=== PATIENT | male | born 1990 | race Caucasian/White ===

== ENCOUNTER 2018-05-26 19:06 | Emergency (ER) | payer SELFPAY ==
[~2018-05-26] VITALS: Ht 165.1 cm; Wt 63.6 kg
[2018-05-26] MEDS ORDERED: SODIUM CHLORIDE 0.9% 1,000 ML IV ONE (19:34)
[2018-05-26] MEDS ORDERED: FOLIC ACID 1 MG, THIAMINE HCL 100 MG, MVI, ADULT NO.1 10 ML in DEXTROSE 5% WATER 1,000 ML IV ONE ×4 (19:45)
[2018-05-26 20:31] LABS: BASOPHILS % 3.4 % (0.0-2.0); EOSINOPHILS % 0.4 % (0.0-5.0); HEMATOCRIT. 29.2 % (42.0-52.0); LYMPHOCYTES % 49.9 % (20.0-50.0); MEAN CORPUSCULAR HEMOGLOBIN 19.8 pg (28.0-32.0); MEAN CORPUSCULAR VOLUME 64.2 fL (80.0-94.0); MEAN PLATELET VOLUME 8.2 fl (7.4-10.4); MONOCYTES % 10.8 % (2.0-8.0); NEUTROPHILS % 35.5 % (40.0-76.0); RED BLOOD CELL COUNT 4.55 mill/uL (4.7-6.1); RED CELL DISTRIBUTION WIDTH 24.2 % (11.6-14.6)
[2018-05-26 20:34] LABS: CHLORIDE 99 mEq/L (98-107)
[2018-05-26 20:40] LABS: *COCAINE SCREEN URINE NEGATIVE (NEGATIVE); METHADONE URINE SCREEN NEGATIVE (NEGATIVE)
[2018-05-26 20:41] LABS: *AMPHETAMINES SCREEN URINE NEGATIVE (NEGATIVE); *BARBITURATES SCREEN URINE NEGATIVE (NEGATIVE); *BENZODIAZEPINES SCREEN URINE NEGATIVE (NEGATIVE); CANNABINOID URINE SCREEN NEGATIVE (NEGATIVE); OPIATES URINE SCREEN NEGATIVE (NEGATIVE); PHENCYCLIDINE URINE SCREEN NEGATIVE (NEGATIVE)
[2018-05-26 20:47] LABS: PLATELET 50 x1000/uL (130-400)
[2018-05-26 20:54] LABS: ETHANOL BLOOD 479 mg/dL
[2018-05-26 21:58] LABS: PLATELET ESTIMATE MARKEDLY DECREASED
[2018-05-27 05:46] VITALS: BP 101/64
== END 2018-05-27 06:20 | disposition home or self-care (01) ==
LOC: ER 19:06
DX: F10.129 Alcohol abuse with intoxication, unspecified (principal); Y90.8 Blood alcohol level of 240 mg/100 ml or more; D69.6 Thrombocytopenia, unspecified; D72.819 Decreased white blood cell count, unspecified; D64.9 Anemia, unspecified; R73.9 Hyperglycemia, unspecified
CPT/HCPCS: 36415; 70450; 80053; 80305; 85025; 96365; 99285; G0482; J3411; J3490; J7030; J7070; Z7610

== ENCOUNTER 2018-06-01 12:42 | Inpatient (IN) | payer SELFPAY ==
[~2018-06-01] VITALS: Ht 162.6 cm; Wt 75.7 kg
[2018-06-01] MEDS ORDERED: FAMOTIDINE 20MG/2ML VIAL IV STA (13:45)
[2018-06-01] MEDS ORDERED: SODIUM CHLORIDE 0.9% 1,000 ML IV ONE (13:45)
[2018-06-01] MEDS ORDERED: MORPHINE SULFATE 4 MG/ML CPJ (NOT FOR IM USE) IV STA (13:45)
[2018-06-01] MEDS ORDERED: ONDANSETRON HCL 4MG/2ML INJ IV STA (13:45)
[2018-06-01 15:30] LABS: HEMATOCRIT. 25.9 % (42.0-52.0); HEMOGLOBIN. 7.9 g/dL (14.0-18.0); MEAN CORPUSCULAR HEMOGLOBIN 20.1 pg (28.0-32.0); MEAN CORPUSCULAR VOLUME 65.8 fL (80.0-94.0); MEAN PLATELET VOLUME 8.4 fl (7.4-10.4); RED BLOOD CELL COUNT 3.94 mill/uL (4.7-6.1); RED CELL DISTRIBUTION WIDTH 25.1 % (11.6-14.6)
[2018-06-01 15:34] LABS: PLATELET 35 x1000/uL (130-400)
[2018-06-01 15:40] LABS: CHLORIDE 104 mEq/L (98-107)
[2018-06-01 16:02] LABS: INR 1.1; PARTIAL THROMBOPLASTIN TIME 30.1 sec (23.4-31.0); PROTHROMBIN TIME 11.5 sec (9.1-11.1)
[2018-06-01 16:10] LABS: ETHANOL BLOOD 345 mg/dL
[2018-06-01 16:11] LABS: PLATELET ESTIMATE MARKEDLY DECREASED
[2018-06-01] MEDS ORDERED: KCL 10MEQ/50ML PREMIX 50 ML IV ONE (16:15)
[2018-06-01 16:51] LABS: CLARITY URINE CLEAR (CLEAR); COLOR URINE YELLOW (YELLOW); KETONES URINE NEGATIVE (NEGATIVE); LEUKOCYTE ESTERASE URINE NEGATIVE (NEGATIVE); NITRITE URINE NEGATIVE (NEGATIVE); OCCULT BLOOD URINE NEGATIVE (NEGATIVE); PROTEIN URINE NEGATIVE (NEGATIVE); SPECIFIC GRAVITY URINE 1.002 (1.005-1.030); UROBILINOGEN URINE 0.2 E.U./dL (0.2-1.0)
[2018-06-01 17:22] LABS: *AMPHETAMINES SCREEN URINE NEGATIVE (NEGATIVE); *BARBITURATES SCREEN URINE NEGATIVE (NEGATIVE); *BENZODIAZEPINES SCREEN URINE NEGATIVE (NEGATIVE); *COCAINE SCREEN URINE NEGATIVE (NEGATIVE); METHADONE URINE SCREEN NEGATIVE (NEGATIVE); OPIATES URINE SCREEN NEGATIVE (NEGATIVE); PHENCYCLIDINE URINE SCREEN NEGATIVE (NEGATIVE)
[2018-06-01 17:23] LABS: CANNABINOID URINE SCREEN NEGATIVE (NEGATIVE)
[2018-06-01 18:58] VITALS: BP 138/91
[2018-06-01 20:00] VITALS: BP 140/94
[2018-06-01] MEDS ORDERED: ENOXAPARIN 40MG/0.4ML SYR SUBCUT SCH (20:00)
[2018-06-01] MEDS ORDERED: ONDANSETRON HCL 4MG/2ML INJ IV PRN (20:00)
[2018-06-01] MEDS ORDERED: MAGNESIUM/ALUMINUM HYDROXIDE/SIMETHICONE 30ML UDC PO PRN (20:00)
[2018-06-01] MEDS ORDERED: IPRATROPIUM/ALBUTEROL 0.5-3(2.5)MG/3ML NEB INH PRN (20:00)
[2018-06-01] MEDS ORDERED: NA PHOS,M-B/NA PHOS,DI-BA ENEMA 118ML PR PRN (20:00)
[2018-06-01] MEDS ORDERED: DIPHENHYDRAMINE 50MG/ML VIAL IV PRN (20:00)
[2018-06-01] MEDS ORDERED: HYDROCODONE/ACETAMINOPHEN 5/325MG TABLET PO PRN (20:00)
[2018-06-01] MEDS ORDERED: ACETAMINOPHEN 650MG SUPP PR PRN (20:00)
[2018-06-01] MEDS ORDERED: ACETAMINOPHEN 650MG/20.3ML UDC GT PRN (20:00)
[2018-06-01] MEDS ORDERED: CLONIDINE 0.1MG TABLET PO PRN (20:00)
[2018-06-01] MEDS ORDERED: HYDROCODONE/ACETAMINOPHEN 10/325MG TABLET PO PRN (20:00)
[2018-06-01] MEDS ORDERED: THIAMINE HCL 100MG TABLET PO NR (20:15)
[2018-06-01] MEDS ORDERED: POTASSIUM CHLORIDE 20MEQ TABLET SR PO PRN (20:15)
[2018-06-01] MEDS ORDERED: THIAMINE HCL 100MG TABLET PO ONE (20:15)
[2018-06-01] MEDS: CHLORDIAZEPOXIDE 25MG CAPSULE PO SCH (21:22)
[2018-06-01] MEDS: FAMOTIDINE 20MG TABLET PO SCH (21:22)
[2018-06-01] MEDS: FOLIC ACID 1MG TABLET PO SCH (21:22)
[2018-06-01] MEDS: SODIUM CHLORIDE 0.9% INJ 3ML FLUSH IVF SCH (21:23)
[2018-06-01] MEDS: SODIUM CHLORIDE 0.45% 1,000 ML IV SCH (21:47)
[2018-06-02] VITALS (7 sets, daily range): BP systolic 119–154; BP diastolic 75–90
[2018-06-02 05:45] LABS: CHLORIDE 101 mEq/L (98-107)
[2018-06-02] MEDS: CHLORDIAZEPOXIDE 25MG CAPSULE PO SCH ×3 (05:50→21:16)
[2018-06-02] MEDS: ACETAMINOPHEN 325MG TABLET PO PRN ×2 (05:52→12:39)
[2018-06-02] MEDS: SODIUM CHLORIDE 0.9% INJ 3ML FLUSH IVF SCH ×2 (05:53→15:07)
[2018-06-02] MEDS: MORPHINE SULFATE 4 MG/ML CPJ (NOT FOR IM USE) IV PRN ×2 (05:53→21:17)
[2018-06-02 05:54] LABS: HDL CHOLESTEROL 93 mg/dL (40-59); LDL CHOLESTEROL 83 mg/dL (5-100)
[2018-06-02 06:40] LABS: HEMATOCRIT. 25.1 % (42.0-52.0); HEMOGLOBIN. 7.8 g/dL (14.0-18.0); MEAN CORPUSCULAR HEMOGLOBIN 20.5 pg (28.0-32.0); MEAN CORPUSCULAR VOLUME 65.9 fL (80.0-94.0); MEAN PLATELET VOLUME 8.3 fl (7.4-10.4); RED BLOOD CELL COUNT 3.82 mill/uL (4.7-6.1); RED CELL DISTRIBUTION WIDTH 24.2 % (11.6-14.6)
[2018-06-02 07:14] LABS: PLATELET 33 x1000/uL (130-400)
[2018-06-02] MEDS: THIAMINE HCL 100MG TABLET PO SCH (08:51)
[2018-06-02] MEDS: FOLIC ACID 1MG TABLET PO SCH (08:51)
[2018-06-02] MEDS: SODIUM CHLORIDE 0.45% 1,000 ML IV SCH ×2 (08:54→21:22)
[2018-06-02] MEDS: FAMOTIDINE 20MG TABLET PO SCH (21:16)
[2018-06-03] VITALS: BP 120/76
[2018-06-03] MEDS: ACETAMINOPHEN 325MG TABLET PO PRN (00:16)
[2018-06-03] MEDS: SODIUM CHLORIDE 0.9% INJ 3ML FLUSH IVF SCH ×3 (03:54→14:36)
[2018-06-03 04:00] VITALS: BP 124/79
[2018-06-03] MEDS: CHLORDIAZEPOXIDE 25MG CAPSULE PO SCH ×2 (07:05→14:34)
[2018-06-03 08:00] VITALS: BP 104/75
[2018-06-03] MEDS: THIAMINE HCL 100MG TABLET PO SCH (08:20)
[2018-06-03] MEDS: FOLIC ACID 1MG TABLET PO SCH (08:20)
[2018-06-03] MEDS: SODIUM CHLORIDE 0.45% 1,000 ML IV SCH (08:30)
[2018-06-03] MEDS ORDERED: PANTOPRAZOLE SODIUM 40 MG/VIAL IV SCH (10:15)
[2018-06-03 12:00] VITALS: BP 105/75
[2018-06-03 12:55] LABS: BASOPHILS % 3.9 % (0.0-2.0); HEMOGLOBIN. 8.7 g/dL (14.0-18.0); LYMPHOCYTES % 27.7 % (20.0-50.0); MEAN CORPUSCULAR HEMOGLOBIN 20.1 pg (28.0-32.0); MEAN CORPUSCULAR VOLUME 66.8 fL (80.0-94.0); MEAN PLATELET VOLUME 8.5 fl (7.4-10.4); MONOCYTES % 10.1 % (2.0-8.0); NEUTROPHILS % 55.3 % (40.0-76.0); RED BLOOD CELL COUNT 4.34 mill/uL (4.7-6.1); RED CELL DISTRIBUTION WIDTH 24.8 % (11.6-14.6)
[2018-06-03 12:59] LABS: INR 1.2; PARTIAL THROMBOPLASTIN TIME 30.1 sec (23.4-31.0); PROTHROMBIN TIME 12.2 sec (9.1-11.1)
[2018-06-03 13:02] LABS: PLATELET 47 x1000/uL (130-400)
[2018-06-03 13:03] LABS: CHLORIDE 100 mEq/L (98-107)
[2018-06-03 13:19] LABS: FERRITIN 32 ng/mL (22-322)
[2018-06-03 13:20] LABS: AMYLASE 65 IU/L (25-115)
[2018-06-03 13:25] LABS: TOTAL IRON BINDING CAPACITY 384 ug/dL (250-450)
[2018-06-03 13:31] LABS: HEPATITIS B SURFACE ANTIGEN NEGATIVE
[2018-06-03 13:33] LABS: VITAMIN B12 SERUM 1057 pg/mL (211-911)
[2018-06-03 13:39] LABS: FOLIC ACID (FOLATE) SERUM > 20.00 ng/mL (>5.38)
[2018-06-03 13:51] VITALS: BP 105/75
[2018-06-03 13:58] LABS: HEPATITIS B CORE AB IGM NEGATIVE
[2018-06-03 14:00] LABS: HEPATITIS A AB IGM NEGATIVE (NEGATIVE)
[2018-06-03 14:24] LABS: PLATELET ESTIMATE MARKEDLY DECREASED
[2018-06-03 16:00] VITALS: BP 106/78
[2018-06-03 17:01] LABS: HEMATOCRIT 25.1 % (42.0-52.0); HEMOGLOBIN 7.8 g/dL (14.0-18.0); MEAN CORPUSCULAR HEMOGLOBIN 20.5 pg (28.0-32.0); MEAN CORPUSCULAR VOLUME 65.9 fL (80.0-94.0); RED BLOOD CELL COUNT 3.82 mill/uL (4.7-6.1)
[2018-06-03 17:08] LABS: RED CELL DISTRIBUTION WIDTH 24.2 % (11.6-14.6)
[2018-06-03 17:10] LABS: PLATELET 33 x1000/uL (130-400)
== END 2018-06-03 18:05 | disposition home or self-care (01) | DRG 241 ==
LOC: ER 12:50 → 6EST 17:00 → ENRESERV 18:00
PROVIDERS: ADMIT Family Medicine; ATTEND Family Medicine
DX: K29.20 Alcoholic gastritis without bleeding (principal); K85.20 Alcohol induced acute pancreatitis without necrosis or infection; F10.231 Alcohol dependence with withdrawal delirium; D69.59 Other secondary thrombocytopenia; E86.0 Dehydration; D50.9 Iron deficiency anemia, unspecified; F17.210 Nicotine dependence, cigarettes, uncomplicated; K70.9 Alcoholic liver disease, unspecified; E78.5 Hyperlipidemia, unspecified; E87.6 Hypokalemia; K76.0 Fatty (change of) liver, not elsewhere classified; K82.8 Other specified diseases of gallbladder; Y90.8 Blood alcohol level of 240 mg/100 ml or more; Z59.0 Homelessness
CPT/HCPCS: 36415; 71045; 74176; 76705; 80053; 80061; 80076; 80305; 81003; 82150; 82270; 82607; 82728; 82746; 83540; 83550; 83690; 85025; 85027; 85610; 85730; 86705; 86709; 86803; 86850; 86900; 87340; 93005; 96361; 96374; 96375; 99285; C1893; C9113; G0482; J2270; J2405; J3480; J3490; J7030

== ENCOUNTER 2018-12-13 08:24 | Inpatient (IN) | payer OTHER, MEDICAID ==
[~2018-12-13] VITALS: Ht 157.5 cm; Wt 54.9 kg
[2018-12-13] MEDS ORDERED: SODIUM CHLORIDE 0.9% 1,000 ML IV ONE (08:44)
[2018-12-13] MEDS ORDERED: FAMOTIDINE 20MG/2ML VIAL IV ONE (08:45)
[2018-12-13] MEDS ORDERED: ONDANSETRON HCL 4MG/2ML INJ IV ONE (08:45)
[2018-12-13 09:12] LABS: CHLORIDE 101 mEq/L (98-107)
[2018-12-13 09:14] LABS: MEAN CORPUSCULAR HEMOGLOBIN 20.3 pg (28.0-32.0); MEAN CORPUSCULAR VOLUME 66.9 fL (80.0-94.0); MEAN PLATELET VOLUME 8.1 fl (7.4-10.4); RED BLOOD CELL COUNT 3.33 mill/uL (4.7-6.1); RED CELL DISTRIBUTION WIDTH 19.9 % (11.6-14.6)
[2018-12-13 09:15] LABS: INR 1.2; PARTIAL THROMBOPLASTIN TIME 28.7 sec (23.4-31.0); PROTHROMBIN TIME 12.5 sec (9.6-11.0)
[2018-12-13 09:18] LABS: PLATELET 51 x1000/uL (130-400)
[2018-12-13 09:19] LABS: HEMATOCRIT. 22.3 % (42.0-52.0); HEMOGLOBIN. 6.7 g/dL (14.0-18.0)
[2018-12-13 09:37] LABS: ETHANOL BLOOD 304 mg/dL
[2018-12-13 09:50] LABS: PLATELET ESTIMATE DECREASED
[2018-12-13] MEDS ORDERED: LEVOFLOXACIN 500MG PREMIX 100 ML IV ONE (10:00)
[2018-12-13] MEDS ORDERED: MAGNESIUM 1 G PREMIX 100 ML IV ONE (10:00)
[2018-12-13] MEDS ORDERED: PIPERACILLIN/TAZ 3.375G PREMIX 50 ML IV ONE (10:00)
[2018-12-13] MEDS ORDERED: SODIUM CHLORIDE 0.9% 1000ML BAG (SEPSIS BOLUS) IV ONE (10:00)
[2018-12-13 10:26] LABS: TOTAL IRON BINDING CAPACITY 468 ug/dL (250-450)
[2018-12-13 10:39] LABS: CLARITY URINE CLEAR (CLEAR); COLOR URINE DARK YELLOW (YELLOW); KETONES URINE TRACE (NEGATIVE); LEUKOCYTE ESTERASE URINE NEGATIVE (NEGATIVE); NITRITE URINE NEGATIVE (NEGATIVE); OCCULT BLOOD URINE NEGATIVE (NEGATIVE); PROTEIN URINE 2+ (NEGATIVE); SPECIFIC GRAVITY URINE 1.025 (1.005-1.030)
[2018-12-13 10:59] LABS: *AMPHETAMINES SCREEN URINE NEGATIVE (NEGATIVE); *BARBITURATES SCREEN URINE NEGATIVE (NEGATIVE); *BENZODIAZEPINES SCREEN URINE NEGATIVE (NEGATIVE); *COCAINE SCREEN URINE NEGATIVE (NEGATIVE)
[2018-12-13 11:00] LABS: CANNABINOID URINE SCREEN NEGATIVE (NEGATIVE); METHADONE URINE SCREEN NEGATIVE (NEGATIVE); OPIATES URINE SCREEN NEGATIVE (NEGATIVE); PHENCYCLIDINE URINE SCREEN NEGATIVE (NEGATIVE)
[2018-12-13 12:00] VITALS: BP_SYST 120; BP_SYST 126; BP_DIAS 70; BP_DIAS 80
[2018-12-13] MEDS ORDERED: LORAZEPAM 2MG/ML CPJ IV PRN (12:00)
[2018-12-13] MEDS ORDERED: IPRATROPIUM/ALBUTEROL 0.5-3(2.5)MG/3ML NEB HHN PRN (12:00)
[2018-12-13] MEDS: FERROUS SULFATE 325MG TABLET PO SCH ×2 (13:43→18:22)
[2018-12-13] MEDS: CHLORDIAZEPOXIDE 25MG CAPSULE PO SCH ×2 (13:44→21:04)
[2018-12-13] MEDS ORDERED: CEFTRIAXONE 1 G PREMIX 50 ML IV SCH (14:00)
[2018-12-13] MEDS: METRONIDAZOLE 500 MG PREMIX 100 ML IV SCH ×2 (15:31→22:34)
[2018-12-13 15:57] VITALS: BP 104/61
[2018-12-13] MEDS ORDERED: FOLIC ACID 1 MG,THIAMINE 100 MG,MVI-12 10 ML in DEXTROSE 5% WATER 1000 ML IV SCH ×4 (16:00)
[2018-12-13] MEDS ORDERED: HYDROCODONE/ACETAMINOPHEN 5/325MG TABLET PO PRN (17:00)
[2018-12-13] MEDS ORDERED: CLONIDINE 0.1MG TABLET PO PRN (17:00)
[2018-12-13] MEDS ORDERED: ONDANSETRON HCL 4MG/2ML INJ IV PRN (17:00)
[2018-12-13] MEDS ORDERED: ENOXAPARIN 40MG/0.4ML SYR SUBCUT SCH (17:00)
[2018-12-13] MEDS: CEFTRIAXONE 1 G PREMIX 50 ML IV SCH (18:22)
[2018-12-13 20:00] VITALS: BP 167/71
[2018-12-14] VITALS (10 sets, daily range): BP systolic 104–127; BP diastolic 64–77
[2018-12-14] MEDS: SODIUM CHLORIDE 0.9% 1,000 ML IV SCH ×2 (02:56→21:03)
[2018-12-14] MEDS: CHLORDIAZEPOXIDE 25MG CAPSULE PO SCH ×3 (05:57→20:59)
[2018-12-14] MEDS ORDERED: PROTAMINE SULFATE 10MG/ML VIAL 25ML IV SCH (06:00)
[2018-12-14] MEDS: METRONIDAZOLE 500 MG PREMIX 100 ML IV SCH ×3 (06:00→23:25)
[2018-12-14 07:08] LABS: MEAN CORPUSCULAR HEMOGLOBIN 20.2 pg (28.0-32.0); MEAN CORPUSCULAR VOLUME 67.9 fL (80.0-94.0); MEAN PLATELET VOLUME 8.2 fl (7.4-10.4); RED BLOOD CELL COUNT 3.38 mill/uL (4.7-6.1); RED CELL DISTRIBUTION WIDTH 19.7 % (11.6-14.6)
[2018-12-14 07:59] LABS: HEMATOCRIT. 22.9 % (42.0-52.0); HEMOGLOBIN. 6.8 g/dL (14.0-18.0)
[2018-12-14 08:03] LABS: CHLORIDE 98 mEq/L (98-107)
[2018-12-14 08:11] LABS: PHOSPHORUS 2.1 mg/dL (2.5-4.9)
[2018-12-14] MEDS: FERROUS SULFATE 325MG TABLET PO SCH ×3 (08:44→17:22)
[2018-12-14] MEDS: PANTOPRAZOLE SODIUM 40 MG/VIAL IV SCH (08:44)
[2018-12-14] MEDS ORDERED: FERROUS SULFATE 325MG TABLET PO SCH ×2 (09:00→12:50)
[2018-12-14] MEDS ORDERED: THIAMINE HCL 100MG TABLET PO SCH (09:00)
[2018-12-14 11:01] LABS: NUCLEATED RED BLOOD CELLS 1 /100 WBC
[2018-12-14 11:03] LABS: PLATELET 47 x1000/uL (130-400); PLATELET ESTIMATE MARKEDLY DECREASED
[2018-12-14] MEDS: LORAZEPAM 2MG/ML CPJ IV PRN ×4 (13:18→23:08)
[2018-12-14] MEDS: CEFTRIAXONE 1 G PREMIX 50 ML IV SCH (17:22)
[2018-12-14 17:27] LABS: HEMATOCRIT 27.4 % (42.0-52.0); HEMOGLOBIN 8.4 g/dL (14.0-18.0); MEAN CORPUSCULAR VOLUME 71.4 fL (80.0-94.0); PLATELET 51 x1000/uL (130-400); RED BLOOD CELL COUNT 3.84 mill/uL (4.7-6.1); RED CELL DISTRIBUTION WIDTH 22.1 % (11.6-14.6)
[2018-12-14] MEDS: ACETAMINOPHEN 325MG TABLET PO PRN (18:01)
[2018-12-15] VITALS: BP 141/87
[2018-12-15] MEDS: LORAZEPAM 2MG/ML CPJ IV PRN ×3 (02:05→14:11)
[2018-12-15 04:00] VITALS: BP 131/74
[2018-12-15] MEDS: CHLORDIAZEPOXIDE 25MG CAPSULE PO SCH ×3 (05:42→23:06)
[2018-12-15] MEDS: METRONIDAZOLE 500 MG PREMIX 100 ML IV SCH (07:33)
[2018-12-15] MEDS: FERROUS SULFATE 325MG TABLET PO SCH ×3 (07:50→17:30)
[2018-12-15 08:00] VITALS: BP 132/77
[2018-12-15] MEDS ORDERED: HALOPERIDOL LACTATE 5MG/ML VIAL IM PRN (08:00)
[2018-12-15] MEDS ORDERED: HALOPERIDOL LACTATE 5MG/ML VIAL IM NR (08:00)
[2018-12-15 08:15] LABS: EOSINOPHILS % 0.7 % (0.0-5.0); HEMATOCRIT. 28.3 % (42.0-52.0); HEMOGLOBIN. 8.7 g/dL (14.0-18.0); LYMPHOCYTES % 12.2 % (20.0-50.0); MEAN CORPUSCULAR VOLUME 71.3 fL (80.0-94.0); MEAN PLATELET VOLUME 8.5 fl (7.4-10.4); MONOCYTES % 12.3 % (2.0-8.0); NEUTROPHILS % 71.8 % (40.0-76.0); PLATELET 75 x1000/uL (130-400); RED BLOOD CELL COUNT 3.96 mill/uL (4.7-6.1)
[2018-12-15 08:53] LABS: CHLORIDE 104 mEq/L (98-107)
[2018-12-15] MEDS: SODIUM CHLORIDE 0.9% 1,000 ML IV SCH ×3 (08:56→17:31)
[2018-12-15] MEDS: PANTOPRAZOLE SODIUM 40 MG/VIAL IV SCH (09:12)
[2018-12-15 12:00] VITALS: BP 104/67
[2018-12-15] MEDS: POTASSIUM CHLORIDE 20MEQ TABLET SR PO SCH (15:52)
[2018-12-15] MEDS: METRONIDAZOLE 500MG TABLET PO SCH ×2 (15:52→23:05)
[2018-12-15] MEDS: FOLIC ACID 1 MG,THIAMINE 100 MG,MVI-12 10 ML in DEXTROSE 5% WATER 1000 ML IV SCH ×4 (15:53)
[2018-12-15 16:00] VITALS: BP 131/87
[2018-12-15] MEDS: CEFTRIAXONE 1 G PREMIX 50 ML IV SCH (17:30)
[2018-12-15 20:04] VITALS: BP 135/79
[2018-12-16] VITALS: BP 129/81
[2018-12-16 04:00] VITALS: BP 128/84
[2018-12-16] MEDS: SODIUM CHLORIDE 0.9% 1,000 ML IV SCH (05:21)
[2018-12-16] MEDS: METRONIDAZOLE 500MG TABLET PO SCH ×3 (06:00→23:33)
[2018-12-16] MEDS: CHLORDIAZEPOXIDE 25MG CAPSULE PO SCH ×3 (06:00→21:51)
[2018-12-16 08:00] VITALS: BP 112/79
[2018-12-16] MEDS: PANTOPRAZOLE SODIUM 40 MG/VIAL IV SCH (09:52)
[2018-12-16] MEDS: FERROUS SULFATE 325MG TABLET PO SCH ×2 (09:52→13:55)
[2018-12-16] MEDS: POTASSIUM CHLORIDE 20MEQ TABLET SR PO SCH (09:52)
[2018-12-16] MEDS: LORAZEPAM 2MG/ML CPJ IV PRN ×2 (10:09→17:46)
[2018-12-16] MEDS: CEFTRIAXONE 1 G PREMIX 50 ML IV SCH (17:45)
[2018-12-16] MEDS: FOLIC ACID 1 MG,THIAMINE 100 MG,MVI-12 10 ML in DEXTROSE 5% WATER 1000 ML IV SCH ×4 (17:45)
[2018-12-16 20:35] VITALS: BP 97/66
[2018-12-16] MEDS: POTASSIUM-SODIUM PHOSPHATE POWDER PACKET PO SCH (23:33)
[2018-12-17 00:36] VITALS: BP 111/74
[2018-12-17 04:44] VITALS: BP 122/80
[2018-12-17 05:41] LABS: HEMATOCRIT. 29.2 % (42.0-52.0); MEAN CORPUSCULAR HEMOGLOBIN 22.6 pg (28.0-32.0); MEAN CORPUSCULAR VOLUME 73.2 fL (80.0-94.0); MEAN PLATELET VOLUME 7.6 fl (7.4-10.4); PLATELET 141 x1000/uL (130-400); RED CELL DISTRIBUTION WIDTH 22.1 % (11.6-14.6)
[2018-12-17] MEDS: METRONIDAZOLE 500MG TABLET PO SCH ×2 (06:39→14:41)
[2018-12-17] MEDS: CHLORDIAZEPOXIDE 25MG CAPSULE PO SCH ×3 (06:40→22:49)
[2018-12-17 08:00] VITALS: BP 115/81
[2018-12-17 08:02] LABS: CHLORIDE 106 mEq/L (98-107)
[2018-12-17 08:11] LABS: PHOSPHORUS 3.1 mg/dL (2.5-4.9)
[2018-12-17] MEDS: POTASSIUM-SODIUM PHOSPHATE POWDER PACKET PO SCH ×2 (08:14→16:50)
[2018-12-17] MEDS: POTASSIUM CHLORIDE 20MEQ TABLET SR PO SCH (08:15)
[2018-12-17 10:02] LABS: PLATELET ESTIMATE NORMAL
[2018-12-17 12:46] VITALS: BP 120/81
[2018-12-17] MEDS: LORAZEPAM 2MG/ML CPJ IV PRN (14:35)
[2018-12-17] MEDS: FOLIC ACID 1 MG,THIAMINE 100 MG,MVI-12 10 ML in DEXTROSE 5% WATER 1000 ML IV SCH ×4 (16:50)
[2018-12-17 16:55] VITALS: BP 116/77
[2018-12-17 20:00] VITALS: BP 99/57
[2018-12-18 00:24] VITALS: BP 113/72
[2018-12-18 04:00] VITALS: BP 114/76
[2018-12-18] MEDS: CHLORDIAZEPOXIDE 25MG CAPSULE PO SCH ×2 (05:49→13:47)
[2018-12-18 08:00] VITALS: BP 103/69
[2018-12-18] MEDS: POTASSIUM-SODIUM PHOSPHATE POWDER PACKET PO SCH (09:36)
[2018-12-18] MEDS: POTASSIUM CHLORIDE 20MEQ TABLET SR PO SCH (09:36)
[2018-12-18 12:00] VITALS: BP 111/71
[2018-12-18] MEDS: LORAZEPAM 2MG/ML CPJ IV PRN (15:34)
[2018-12-18 16:00] VITALS: BP 114/69
[2018-12-18 20:13] VITALS: BP 100/63
[2018-12-19 00:13] VITALS: BP 108/75
[2018-12-19 04:49] VITALS: BP 104/56
[2018-12-19 08:00] VITALS: BP 105/70
[2018-12-19] MEDS: LORAZEPAM 2MG/ML CPJ IV PRN ×2 (08:59→13:43)
[2018-12-19] MEDS: POTASSIUM CHLORIDE 20MEQ TABLET SR PO SCH (08:59)
[2018-12-19 12:00] VITALS: BP 111/78
[2018-12-19 16:00] VITALS: BP 100/69
[2018-12-19 20:09] VITALS: BP 114/73
[2018-12-19] MEDS: ACETAMINOPHEN 325MG TABLET PO PRN (21:51)
[2018-12-20] VITALS: BP 107/68
[2018-12-20 04:00] VITALS: BP 100/65
[2018-12-20 08:22] VITALS: BP 96/61
[2018-12-20] MEDS: POTASSIUM CHLORIDE 20MEQ TABLET SR PO SCH (08:46)
[2018-12-20 12:16] VITALS: BP 105/64
[2018-12-20 16:00] VITALS: BP 102/67
[2018-12-20 20:00] VITALS: BP 110/76
[2018-12-21] VITALS: BP 113/74
[2018-12-21 04:00] VITALS: BP 121/77
[2018-12-21 08:00] VITALS: BP 107/70
[2018-12-21] MEDS: POTASSIUM CHLORIDE 20MEQ TABLET SR PO SCH (10:24)
[2018-12-21 12:00] VITALS: BP 101/71
[2018-12-21 16:00] VITALS: BP 105/65
[2018-12-21] MEDS: ACETAMINOPHEN 325MG TABLET PO PRN (21:10)
[2018-12-22 00:47] VITALS: BP 113/71
[2018-12-22 04:17] VITALS: BP 99/63
[2018-12-22 08:00] VITALS: BP 110/68
[2018-12-22] MEDS: POTASSIUM CHLORIDE 20MEQ TABLET SR PO SCH (09:02)
[2018-12-22 12:00] VITALS: BP 106/69
[2018-12-22 18:00] VITALS: BP 103/68
[2018-12-22 20:00] VITALS: BP 110/77
[2018-12-22] MEDS: ACETAMINOPHEN 325MG TABLET PO PRN (23:49)
[2018-12-23] VITALS: BP 117/75
[2018-12-23 04:00] VITALS: BP 109/72
[2018-12-23 06:29] LABS: HEMATOCRIT. 29.6 % (42.0-52.0); HEMOGLOBIN. 9.1 g/dL (14.0-18.0); MEAN CORPUSCULAR HEMOGLOBIN 22.8 pg (28.0-32.0); MEAN PLATELET VOLUME 7.6 fl (7.4-10.4); PLATELET 461 x1000/uL (130-400); RED BLOOD CELL COUNT 4.01 mill/uL (4.7-6.1); RED CELL DISTRIBUTION WIDTH 23.3 % (11.6-14.6)
[2018-12-23 06:59] LABS: CHLORIDE 108 mEq/L (98-107)
[2018-12-23 07:07] LABS: PHOSPHORUS 4.2 mg/dL (2.5-4.9)
[2018-12-23 09:37] LABS: PLATELET ESTIMATE INCREASED
[2018-12-23] MEDS: POTASSIUM CHLORIDE 20MEQ TABLET SR PO SCH (09:48)
[2018-12-23 10:36] VITALS: BP 103/67
== END 2018-12-23 11:31 | disposition home or self-care (01) | DRG 279 ==
LOC: ER 08:24 → 6WST 09:59 → ENRESERV 10:10 → 6WST 12-16 11:19
PROVIDERS: ADMIT Internal Medicine Nephrology; ATTEND Internal Medicine Nephrology
PROC: 30233N1 Transfusion of Nonautologous Red Blood Cells into Peripheral Vein, Percutaneous Approach (ICD-10-PCS; principal; 2018-12-14)
DX: K72.90 Hepatic failure, unspecified without coma (principal); J96.00 Acute respiratory failure, unspecified whether with hypoxia or hypercapnia; J69.0 Pneumonitis due to inhalation of food and vomit; G92 Toxic encephalopathy; E43 Unspecified severe protein-calorie malnutrition; D61.818 Other pancytopenia; K92.2 Gastrointestinal hemorrhage, unspecified; G31.2 Degeneration of nervous system due to alcohol; E87.8 Other disorders of electrolyte and fluid balance, not elsewhere classified; K70.30 Alcoholic cirrhosis of liver without ascites; K70.9 Alcoholic liver disease, unspecified; F10.229 Alcohol dependence with intoxication, unspecified; D50.9 Iron deficiency anemia, unspecified; D62 Acute posthemorrhagic anemia; E83.39 Other disorders of phosphorus metabolism; E83.42 Hypomagnesemia; E87.6 Hypokalemia; E86.0 Dehydration; E87.1 Hypo-osmolality and hyponatremia; Y90.8 Blood alcohol level of 240 mg/100 ml or more; K76.0 Fatty (change of) liver, not elsewhere classified; F17.210 Nicotine dependence, cigarettes, uncomplicated; Z59.0 Homelessness; D63.8 Anemia in other chronic diseases classified elsewhere; R74.0 Nonspecific elevation of levels of transaminase and lactic acid dehydrogenase [LDH]; Z68.22 Body mass index [BMI] 22.0-22.9, adult
CPT/HCPCS: 36415; 71045; 80048; 80305; 80320; 83540; 83550; 83605; 83735; 84100; 84484; 85027; 85044; 86850; 86900; 86920; 93005; 96365; 96375; 97162; 99291; C1893; C9113; J0696; J1630; J1956; J2060; J2405; J2543; J3411; J3475; J3490; J7030; J7050; J7070; P9016; G0480

== ENCOUNTER 2019-02-24 13:18 | Emergency (ER) | payer MEDICAID ==
[~2019-02-24] VITALS: Ht 160 cm; Wt 73.0 kg
[2019-02-24] MEDS ORDERED: SODIUM CHLORIDE 0.9% 1,000 ML IV ONE (13:52)
[2019-02-24 14:34] LABS: CHLORIDE 100 mEq/L (98-107)
[2019-02-24 14:38] LABS: EOSINOPHILS % 1.1 % (0.0-5.0); ETHANOL BLOOD 263 mg/dL; HEMATOCRIT. 27.8 % (42.0-52.0); HEMOGLOBIN. 8.4 g/dL (14.0-18.0); LYMPHOCYTES % 30.4 % (20.0-50.0); MEAN CORPUSCULAR HEMOGLOBIN 21.8 pg (28.0-32.0); MEAN CORPUSCULAR VOLUME 71.6 fL (80.0-94.0); MEAN PLATELET VOLUME 8.5 fl (7.4-10.4); MONOCYTES % 12.3 % (2.0-8.0); NEUTROPHILS % 54.2 % (40.0-76.0); PLATELET 61 x1000/uL (130-400); RED BLOOD CELL COUNT 3.87 mill/uL (4.7-6.1); RED CELL DISTRIBUTION WIDTH 18.8 % (11.6-14.6)
[2019-02-24 16:18] LABS: *AMPHETAMINES SCREEN URINE NEGATIVE (NEGATIVE); *BARBITURATES SCREEN URINE NEGATIVE (NEGATIVE)
[2019-02-24 16:19] LABS: *BENZODIAZEPINES SCREEN URINE PRESUMTIVE POSITIVE (NEGATIVE); *COCAINE SCREEN URINE NEGATIVE (NEGATIVE); CANNABINOID URINE SCREEN NEGATIVE (NEGATIVE); METHADONE URINE SCREEN NEGATIVE (NEGATIVE); OPIATES URINE SCREEN NEGATIVE (NEGATIVE); PHENCYCLIDINE URINE SCREEN NEGATIVE (NEGATIVE)
[2019-02-24 17:00] VITALS: BP 90/61
== END 2019-02-24 19:30 | disposition home or self-care (01) ==
LOC: ER 13:18
DX: F10.229 Alcohol dependence with intoxication, unspecified (principal); Y90.8 Blood alcohol level of 240 mg/100 ml or more
CPT/HCPCS: 36415; 70450; 80053; 80305; 80320; 85025; 96360; 99284; J7030; G0480

== ENCOUNTER 2019-08-22 13:09 | Inpatient (IN) | payer MEDICAID ==
[~2019-08-22] VITALS: Ht 152.4 cm; Wt 52.2 kg
[2019-08-22] MEDS ORDERED: ACETAMINOPHEN 500MG TABLET PO ONE (13:45)
[2019-08-22] MEDS ORDERED: SODIUM CHLORIDE 0.9% 1,000 ML IV ONE (13:45)
[2019-08-22 14:37] LABS: BASOPHILS % 3.1 % (0.0-2.0); EOSINOPHILS % 0.3 % (0.0-5.0); HEMATOCRIT. 26.4 % (42.0-52.0); HEMOGLOBIN. 7.7 g/dL (14.0-18.0); LYMPHOCYTES % 37.9 % (20.0-50.0); MEAN CORPUSCULAR HEMOGLOBIN 20.3 pg (28.0-32.0); MEAN CORPUSCULAR VOLUME 69.4 fL (80.0-94.0); MEAN PLATELET VOLUME 8.3 fl (7.4-10.4); MONOCYTES % 6.3 % (2.0-8.0); NEUTROPHILS % 52.4 % (40.0-76.0); PLATELET 59 x1000/uL (130-400); RED CELL DISTRIBUTION WIDTH 19.2 % (11.6-14.6)
[2019-08-22 14:44] LABS: CHLORIDE 104 mEq/L (98-107)
[2019-08-22 15:00] LABS: PLATELET ESTIMATE DECREASED
[2019-08-22 15:13] LABS: ETHANOL BLOOD 466 mg/dL
[2019-08-22 17:04] LABS: *AMPHETAMINES SCREEN URINE NEGATIVE (NEGATIVE); *BARBITURATES SCREEN URINE NEGATIVE (NEGATIVE); *BENZODIAZEPINES SCREEN URINE NEGATIVE (NEGATIVE)
[2019-08-22 17:05] LABS: *COCAINE SCREEN URINE NEGATIVE (NEGATIVE); CANNABINOID URINE SCREEN NEGATIVE (NEGATIVE); METHADONE URINE SCREEN NEGATIVE (NEGATIVE); OPIATES URINE SCREEN NEGATIVE (NEGATIVE); PHENCYCLIDINE URINE SCREEN NEGATIVE (NEGATIVE)
[2019-08-23] MEDS ORDERED: DIAZEPAM 5 MG/ML 2ML CPJ IV ONE ×2 (05:45→06:45)
[2019-08-23] MEDS ORDERED: KETOROLAC 15MG/ML VIAL IV ONE (09:45)
[2019-08-23] MEDS ORDERED: CHLORDIAZEPOXIDE 25MG CAPSULE PO ONE (09:45)
[2019-08-23] MEDS ORDERED: CHLORDIAZEPOXIDE 25MG CAPSULE PO NR (10:15)
[2019-08-23 16:31] VITALS: BP 145/99
[2019-08-23] MEDS ORDERED: GUAIFENESIN 200MG/10ML SUGAR FREE UDC PO PRN (17:45)
[2019-08-23] MEDS ORDERED: HYDRALAZINE 20MG/ML VIAL IV PRN (17:45)
[2019-08-23] MEDS ORDERED: NA PHOS,M-B/NA PHOS,DI-BA ENEMA 118ML PR PRN (17:45)
[2019-08-23] MEDS ORDERED: IPRATROPIUM/ALBUTEROL 0.5-3(2.5)MG/3ML NEB NEB PRN (17:45)
[2019-08-23] MEDS ORDERED: CLONIDINE 0.1MG TABLET PO PRN (17:45)
[2019-08-23] MEDS ORDERED: MAGNESIUM/ALUMINUM HYDROXIDE/SIMETHICONE 30ML UDC PO PRN (17:45)
[2019-08-23] MEDS ORDERED: DOCUSATE SODIUM 100MG CAPSULE PO PRN (17:45)
[2019-08-23 18:00] VITALS: BP 140/99
[2019-08-23] MEDS: SODIUM CHLORIDE 0.45% 1,000 ML IV SCH (18:30)
[2019-08-23] MEDS: LORAZEPAM 2MG/ML CPJ IV PRN ×3 (18:35→22:19)
[2019-08-23] MEDS ORDERED: MVI, ADULT NO.1 10 ML, FOLIC ACID 1 MG, THIAMINE HCL 100 MG in SODIUM CHLORIDE 0.9% 1,0... IV NR ×4 (20:00)
[2019-08-23] MEDS: SODIUM CHLORIDE 0.9% INJ 3ML FLUSH IVF SCH (22:00)
[2019-08-23 22:01] VITALS: BP 147/89
[2019-08-23] MEDS: DIPHENHYDRAMINE 50MG/ML VIAL IV PRN (22:47)
[2019-08-23 23:38] LABS: CREATINE KINASE 116 IU/L (39-308)
[2019-08-23 23:41] LABS: CREATINE KINASE MB FRACTION 1.1 ng/mL (0.5-3.6)
[2019-08-24] VITALS (46 sets, daily range): BP systolic 95–162; BP diastolic 18–119
[2019-08-24] MEDS: LORAZEPAM 2MG/ML CPJ IV PRN ×8 (00:38→21:15)
[2019-08-24] MEDS: MORPHINE SULFATE 2 MG/ML CPJ (NOT FOR IM USE) IV PRN ×2 (00:55→18:41)
[2019-08-24] MEDS: SODIUM CHLORIDE 0.45% 1,000 ML IV SCH ×3 (02:45→17:53)
[2019-08-24] MEDS: SODIUM CHLORIDE 0.9% INJ 3ML FLUSH IVF SCH ×3 (06:00→21:15)
[2019-08-24] MEDS ORDERED: CHLORDIAZEPOXIDE 25MG CAPSULE PO SCH (08:30)
[2019-08-24] MEDS: ONDANSETRON HCL 4MG/2ML INJ IV PRN ×2 (10:05→21:15)
[2019-08-24 10:22] LABS: CHLORIDE 104 mEq/L (98-107); MEAN CORPUSCULAR HEMOGLOBIN 20.1 pg (28.0-32.0); MEAN CORPUSCULAR VOLUME 69.7 fL (80.0-94.0); MEAN PLATELET VOLUME 9.1 fl (7.4-10.4); RED BLOOD CELL COUNT 3.47 mill/uL (4.7-6.1); RED CELL DISTRIBUTION WIDTH 18.9 % (11.6-14.6)
[2019-08-24 10:33] LABS: CREATINE KINASE 179 IU/L (39-308)
[2019-08-24 10:39] LABS: CREATINE KINASE MB FRACTION 1.9 ng/mL (0.5-3.6)
[2019-08-24 10:41] LABS: HEMATOCRIT. 24.2 % (42.0-52.0)
[2019-08-24] MEDS ORDERED: KCL 20MEQ/100ML PREMIX 100 ML IV ONE (12:15)
[2019-08-24] MEDS: CHLORDIAZEPOXIDE 25MG CAPSULE PO SCH ×2 (14:00→21:15)
[2019-08-24] MEDS ORDERED: POTASSIUM CHLORIDE INJ 40 MEQ in DEXT 5% WATER 250 ML IV NR (14:00)
[2019-08-24] MEDS: FOLIC ACID 1 MG, THIAMINE HCL 100 MG, MVI, ADULT NO.1 10 ML in DEXTROSE 5% WATER 1,000 ML IV SCH ×4 (14:36)
[2019-08-24 15:45] LABS: PLATELET ESTIMATE DECREASED
[2019-08-24 15:51] LABS: PLATELET 45 x1000/uL (130-400)
[2019-08-24] MEDS: DIPHENHYDRAMINE 50MG/ML VIAL IV PRN (21:15)
[2019-08-25] VITALS (49 sets, daily range): BP systolic 115–165; BP diastolic 67–94
[2019-08-25] MEDS: SODIUM CHLORIDE 0.45% 1,000 ML IV SCH ×2 (01:37→09:38)
[2019-08-25 05:46] LABS: HEMATOCRIT 29.8 % (42.0-52.0); HEMOGLOBIN 8.9 g/dL (14.0-18.0); MEAN CORPUSCULAR HEMOGLOBIN 21.6 pg (28.0-32.0); MEAN CORPUSCULAR VOLUME 72.6 fL (80.0-94.0); PLATELET 52 x1000/uL (130-400); RED CELL DISTRIBUTION WIDTH 21.2 % (11.6-14.6)
[2019-08-25 05:51] LABS: CHLORIDE 99 mEq/L (98-107)
[2019-08-25] MEDS: SODIUM CHLORIDE 0.9% INJ 3ML FLUSH IVF SCH ×3 (06:00→21:04)
[2019-08-25] MEDS: CHLORDIAZEPOXIDE 25MG CAPSULE PO SCH ×3 (06:07→21:04)
[2019-08-25] MEDS: ACETAMINOPHEN 325MG TABLET PO PRN (09:37)
[2019-08-25] MEDS: LORAZEPAM 2MG/ML CPJ IV PRN (09:41)
[2019-08-25] MEDS ORDERED: POTASSIUM CHLORIDE 20MEQ TABLET SR PO NR (10:15)
[2019-08-25] MEDS: LACTULOSE 20G/30ML UDC PO SCH ×2 (10:45→16:32)
[2019-08-25] MEDS: DEXT 5%/0.45% NACL 1000ML 1,000 ML IV SCH ×2 (10:45→23:41)
[2019-08-25] MEDS: LEVOFLOXACIN 500MG PREMIX 100 ML IV SCH (12:21)
[2019-08-25 14:43] LABS: HEMATOCRIT 27.7 % (42.0-52.0); HEMOGLOBIN 8.2 g/dL (14.0-18.0)
[2019-08-25] MEDS: FOLIC ACID 1 MG, THIAMINE HCL 100 MG, MVI, ADULT NO.1 10 ML in DEXTROSE 5% WATER 1,000 ML IV SCH ×4 (16:28)
[2019-08-25 16:54] LABS: CLARITY URINE CLEAR (CLEAR); COLOR URINE YELLOW (YELLOW); KETONES URINE NEGATIVE (NEGATIVE); LEUKOCYTE ESTERASE URINE NEGATIVE (NEGATIVE); NITRITE URINE NEGATIVE (NEGATIVE); OCCULT BLOOD URINE NEGATIVE (NEGATIVE); PH URINE 7.5 (4.5-8.0); PROTEIN URINE NEGATIVE (NEGATIVE); SPECIFIC GRAVITY URINE 1.002 (1.005-1.030)
[2019-08-25 22:42] LABS: HEPATITIS A AB IGM NEGATIVE (NEGATIVE)
[2019-08-26] VITALS (41 sets, daily range): BP systolic 75–142; BP diastolic 24–91
[2019-08-26 00:35] LABS: HEMOGLOBIN 8.3 g/dL (14.0-18.0)
[2019-08-26 05:37] LABS: CHLORIDE 104 mEq/L (98-107)
[2019-08-26] MEDS: SODIUM CHLORIDE 0.9% INJ 3ML FLUSH IVF SCH ×3 (06:00→21:23)
[2019-08-26 06:04] LABS: HEMATOCRIT. 27.8 % (42.0-52.0); HEMOGLOBIN. 8.4 g/dL (14.0-18.0); MEAN CORPUSCULAR HEMOGLOBIN 21.7 pg (28.0-32.0); MEAN CORPUSCULAR VOLUME 72.3 fL (80.0-94.0); MEAN PLATELET VOLUME 8.6 fl (7.4-10.4); PLATELET 79 x1000/uL (130-400); RED BLOOD CELL COUNT 3.85 mill/uL (4.7-6.1); RED CELL DISTRIBUTION WIDTH 20.9 % (11.6-14.6)
[2019-08-26] MEDS: CHLORDIAZEPOXIDE 25MG CAPSULE PO SCH ×3 (06:28→21:30)
[2019-08-26 06:43] LABS: HEPATITIS B SURFACE ANTIGEN NEGATIVE
[2019-08-26] MEDS: LACTULOSE 20G/30ML UDC PO SCH ×3 (07:58→17:12)
[2019-08-26] MEDS: MORPHINE SULFATE 2 MG/ML CPJ (NOT FOR IM USE) IV PRN (07:59)
[2019-08-26] MEDS ORDERED: POTASSIUM CHLORIDE 20MEQ TABLET SR PO NR (08:45)
[2019-08-26] MEDS: LEVOFLOXACIN 500MG PREMIX 100 ML IV SCH (11:46)
[2019-08-26] MEDS: DEXT 5%/0.45% NACL 1000ML 1,000 ML IV SCH (11:47)
[2019-08-26] MEDS: HYDROCODONE/ACETAMINOPHEN 10/325MG TABLET PO PRN (14:24)
[2019-08-26 14:45] LABS: PLATELET ESTIMATE SLIGHTLY DECREASED
[2019-08-26] MEDS ORDERED: BISACODYL 10MG SUPP PR PRN (14:45)
[2019-08-26] MEDS: FOLIC ACID 1 MG, THIAMINE HCL 100 MG, MVI, ADULT NO.1 10 ML in DEXTROSE 5% WATER 1,000 ML IV SCH ×4 (17:12)
[2019-08-27] VITALS: BP 120/71
[2019-08-27] MEDS: DEXT 5%/0.45% NACL 1000ML 1,000 ML IV SCH (03:54)
[2019-08-27 04:00] VITALS: BP 118/73
[2019-08-27] MEDS: CHLORDIAZEPOXIDE 25MG CAPSULE PO SCH ×3 (06:44→21:55)
[2019-08-27] MEDS: SODIUM CHLORIDE 0.9% INJ 3ML FLUSH IVF SCH ×3 (06:44→21:55)
[2019-08-27 08:00] VITALS: BP 112/72
[2019-08-27] MEDS: LACTULOSE 20G/30ML UDC PO SCH ×3 (08:50→17:17)
[2019-08-27 11:58] VITALS: BP 124/74
[2019-08-27] MEDS: LEVOFLOXACIN 500MG PREMIX 100 ML IV SCH (12:34)
[2019-08-27 12:42] LABS: HEMATOCRIT. 26.8 % (42.0-52.0); MEAN CORPUSCULAR HEMOGLOBIN 21.9 pg (28.0-32.0); MEAN CORPUSCULAR VOLUME 73.2 fL (80.0-94.0); MEAN PLATELET VOLUME 7.5 fl (7.4-10.4); PLATELET 123 x1000/uL (130-400); RED BLOOD CELL COUNT 3.67 mill/uL (4.7-6.1); RED CELL DISTRIBUTION WIDTH 21.6 % (11.6-14.6)
[2019-08-27 12:52] LABS: CHLORIDE 105 mEq/L (98-107)
[2019-08-27] MEDS: HYDROCODONE/ACETAMINOPHEN 10/325MG TABLET PO PRN (13:58)
[2019-08-27 16:00] VITALS: BP 116/71
[2019-08-27 20:00] VITALS: BP 108/59
[2019-08-28] VITALS (8 sets, daily range): BP systolic 106–128; BP diastolic 63–74
[2019-08-28] MEDS: CHLORDIAZEPOXIDE 25MG CAPSULE PO SCH ×3 (06:13→17:51)
[2019-08-28] MEDS: DEXT 5%/0.45% NACL 1000ML 1,000 ML IV SCH ×2 (06:13→17:51)
[2019-08-28] MEDS: SODIUM CHLORIDE 0.9% INJ 3ML FLUSH IVF SCH ×3 (06:13→21:18)
[2019-08-28 06:31] LABS: CHLORIDE 103 mEq/L (98-107)
[2019-08-28 06:34] LABS: HEMATOCRIT. 26.6 % (42.0-52.0); HEMOGLOBIN. 7.9 g/dL (14.0-18.0); MEAN CORPUSCULAR HEMOGLOBIN 21.8 pg (28.0-32.0); MEAN CORPUSCULAR VOLUME 73.2 fL (80.0-94.0); MEAN PLATELET VOLUME 7.6 fl (7.4-10.4); PLATELET 129 x1000/uL (130-400); RED BLOOD CELL COUNT 3.63 mill/uL (4.7-6.1)
[2019-08-28 07:32] LABS: PLATELET ESTIMATE SLIGHTLY DECREASED
[2019-08-28] MEDS: LACTULOSE 20G/30ML UDC PO SCH ×3 (09:39→17:51)
[2019-08-28 10:59] LABS: PLATELET ESTIMATE NORMAL
[2019-08-28] MEDS: LEVOFLOXACIN 500MG PREMIX 100 ML IV SCH (13:17)
[2019-08-29] VITALS: BP 105/60
[2019-08-29 04:00] VITALS: BP 110/63
[2019-08-29] MEDS: SODIUM CHLORIDE 0.9% INJ 3ML FLUSH IVF SCH ×3 (05:55→22:00)
[2019-08-29] MEDS: DEXT 5%/0.45% NACL 1000ML 1,000 ML IV SCH ×2 (07:09→20:48)
[2019-08-29 08:00] VITALS: BP 140/90
[2019-08-29] MEDS: CHLORDIAZEPOXIDE 25MG CAPSULE PO SCH ×5 (09:27→17:36)
[2019-08-29] MEDS: LACTULOSE 20G/30ML UDC PO SCH ×3 (09:30→17:36)
[2019-08-29 12:00] VITALS: BP 97/53
[2019-08-29] MEDS: LEVOFLOXACIN 500MG PREMIX 100 ML IV SCH (12:51)
[2019-08-29] MEDS: FOLIC ACID 1 MG, THIAMINE HCL 100 MG, MVI, ADULT NO.1 10 ML in DEXTROSE 5% WATER 1,000 ML IV SCH ×4 (14:48)
[2019-08-29 16:00] VITALS: BP 106/58
[2019-08-29] MEDS: LORAZEPAM 2MG/ML CPJ IV PRN ×2 (18:03→22:44)
[2019-08-29 20:00] VITALS: BP 110/70
[2019-08-30] VITALS: BP 96/62
[2019-08-30] MEDS: LORAZEPAM 2MG/ML CPJ IV PRN ×4 (02:20→23:29)
[2019-08-30] MEDS: DIPHENHYDRAMINE 50MG/ML VIAL IV PRN (03:23)
[2019-08-30 04:00] VITALS: BP 107/68
[2019-08-30] MEDS: SODIUM CHLORIDE 0.9% INJ 3ML FLUSH IVF SCH ×3 (05:18→21:17)
[2019-08-30 06:54] LABS: HEMOGLOBIN. 8.5 g/dL (14.0-18.0); MEAN CORPUSCULAR HEMOGLOBIN 21.8 pg (28.0-32.0); MEAN CORPUSCULAR VOLUME 72.1 fL (80.0-94.0); MEAN PLATELET VOLUME 7.6 fl (7.4-10.4); PLATELET 260 x1000/uL (130-400); RED BLOOD CELL COUNT 3.88 mill/uL (4.7-6.1); RED CELL DISTRIBUTION WIDTH 22.5 % (11.6-14.6)
[2019-08-30 07:00] LABS: CHLORIDE 106 mEq/L (98-107)
[2019-08-30 08:00] VITALS: BP_SYST 104; BP_SYST 95; BP_DIAS 61; BP_DIAS 62
[2019-08-30] MEDS: LACTULOSE 20G/30ML UDC PO SCH ×3 (09:00→18:30)
[2019-08-30] MEDS: CHLORDIAZEPOXIDE 25MG CAPSULE PO SCH ×3 (09:01→18:30)
[2019-08-30] MEDS: DEXT 5%/0.45% NACL 1000ML 1,000 ML IV SCH ×2 (10:08→23:31)
[2019-08-30] MEDS: LEVOFLOXACIN 500MG PREMIX 100 ML IV SCH (11:54)
[2019-08-30 12:00] VITALS: BP 99/62
[2019-08-30] MEDS: FOLIC ACID 1 MG, THIAMINE HCL 100 MG, MVI, ADULT NO.1 10 ML in DEXTROSE 5% WATER 1,000 ML IV SCH ×4 (14:18)
[2019-08-30 16:51] LABS: PLATELET ESTIMATE NORMAL
[2019-08-30 16:52] VITALS: BP 95/61
[2019-08-30 20:00] VITALS: BP 99/65
[2019-08-30] MEDS: RIFAXIMIN 550 MG TABLET PO SCH (21:16)
[2019-08-31] VITALS: BP 110/69
[2019-08-31 04:00] VITALS: BP 98/63
[2019-08-31] MEDS: SODIUM CHLORIDE 0.9% INJ 3ML FLUSH IVF SCH ×3 (06:11→21:19)
[2019-08-31 08:00] VITALS: BP 101/70
[2019-08-31] MEDS: LACTULOSE 20G/30ML UDC PO SCH ×3 (08:10→17:05)
[2019-08-31] MEDS: CHLORDIAZEPOXIDE 25MG CAPSULE PO SCH ×3 (08:11→17:05)
[2019-08-31] MEDS: RIFAXIMIN 550 MG TABLET PO SCH ×2 (08:11→21:16)
[2019-08-31] MEDS: LEVOFLOXACIN 500MG PREMIX 100 ML IV SCH (11:23)
[2019-08-31] MEDS: DEXT 5%/0.45% NACL 1000ML 1,000 ML IV SCH (11:24)
[2019-08-31 12:00] VITALS: BP 117/70
[2019-08-31] MEDS: FOLIC ACID 1 MG, THIAMINE HCL 100 MG, MVI, ADULT NO.1 10 ML in DEXTROSE 5% WATER 1,000 ML IV SCH ×4 (13:53)
[2019-08-31 16:00] VITALS: BP 102/69
[2019-08-31 20:00] VITALS: BP 99/62
[2019-09-01] VITALS: BP 94/45
[2019-09-01] MEDS: DEXT 5%/0.45% NACL 1000ML 1,000 ML IV SCH ×2 (02:05→15:25)
[2019-09-01 04:00] VITALS: BP 105/68
[2019-09-01] MEDS: SODIUM CHLORIDE 0.9% INJ 3ML FLUSH IVF SCH ×3 (06:38→22:00)
[2019-09-01] MEDS: RIFAXIMIN 550 MG TABLET PO SCH ×3 (10:13→22:17)
[2019-09-01] MEDS: LACTULOSE 20G/30ML UDC PO SCH ×3 (10:15→17:08)
[2019-09-01] MEDS: LEVOFLOXACIN 500MG PREMIX 100 ML IV SCH (13:13)
[2019-09-01] MEDS: ACETAMINOPHEN 325MG TABLET PO PRN (13:21)
[2019-09-01 15:05] LABS: CHLORIDE 104 mEq/L (98-107)
[2019-09-01] MEDS: FOLIC ACID 1 MG, THIAMINE HCL 100 MG, MVI, ADULT NO.1 10 ML in DEXTROSE 5% WATER 1,000 ML IV SCH ×4 (15:24)
[2019-09-01] MEDS: CHLORDIAZEPOXIDE 25MG CAPSULE PO SCH ×2 (15:25→22:17)
[2019-09-01 20:00] VITALS: BP 113/73
[2019-09-02] VITALS: BP 108/70
[2019-09-02] MEDS: DEXT 5%/0.45% NACL 1000ML 1,000 ML IV SCH (03:53)
[2019-09-02 04:00] VITALS: BP 103/56
[2019-09-02] MEDS: SODIUM CHLORIDE 0.9% INJ 3ML FLUSH IVF SCH ×2 (06:02→13:00)
[2019-09-02] MEDS: CHLORDIAZEPOXIDE 25MG CAPSULE PO SCH (06:02)
[2019-09-02 08:00] VITALS: BP 97/59
[2019-09-02] MEDS: RIFAXIMIN 550 MG TABLET PO SCH (08:45)
[2019-09-02] MEDS: LACTULOSE 20G/30ML UDC PO SCH ×2 (08:45→12:48)
[2019-09-02 12:00] VITALS: BP 109/67
[2019-09-02] MEDS: FOLIC ACID 1 MG, THIAMINE HCL 100 MG, MVI, ADULT NO.1 10 ML in DEXTROSE 5% WATER 1,000 ML IV SCH ×4 (13:00)
[2019-09-02 14:08] VITALS: BP 109/67
[2019-09-02 16:00] VITALS: BP 107/69
== END 2019-09-02 14:50 | disposition home or self-care (01) | DRG 775 ==
LOC: ER 13:09 → EDBEDREQ 08-23 06:30 → EDBEDREQTM 08-23 06:30 → ENRESERV 08-23 14:43 → 3WST 08-23 16:20 → MICUSO 08-24 13:38 → 5WST 08-26 22:50
PROVIDERS: ADMIT Internal Medicine; ATTEND Internal Medicine
PROC: 30233N1 Transfusion of Nonautologous Red Blood Cells into Peripheral Vein, Percutaneous Approach (ICD-10-PCS; principal; 2019-08-25)
PROC: 4A00X4Z Measurement of Central Nervous Electrical Activity, External Approach (ICD-10-PCS; 2019-08-25)
DX: F10.231 Alcohol dependence with withdrawal delirium (principal); D61.818 Other pancytopenia; E72.20 Disorder of urea cycle metabolism, unspecified; E88.09 Other disorders of plasma-protein metabolism, not elsewhere classified; R16.0 Hepatomegaly, not elsewhere classified; K72.90 Hepatic failure, unspecified without coma; E44.1 Mild protein-calorie malnutrition; E87.1 Hypo-osmolality and hyponatremia; F10.229 Alcohol dependence with intoxication, unspecified; K76.0 Fatty (change of) liver, not elsewhere classified; E87.6 Hypokalemia; Y90.8 Blood alcohol level of 240 mg/100 ml or more; D17.9 Benign lipomatous neoplasm, unspecified; Z59.0 Homelessness
CPT/HCPCS: 36415; 74176; 76700; 80048; 80053; 80076; 80305; 80307; 80320; 80329; 81003; 82140; 82270; 82550; 82553; 84484; 85014; 85018; 85025; 85027; 86705; 86709; 86803; 86850; 86900; 86920; 87340; 93970; 96374; 99285; A4565; J1200; J1885; J1956; J2060; J2270; J2405; J3411; J3480; J3490; J7030; J7040; J7060; J7070; J7620; P9016; G0480